=== PATIENT | female | born 1955 | race Caucasian/White ===

== ENCOUNTER 2025-05-11 06:05 | Day surgery (SDC) | payer OTHER, BC ==
[2025-05-08 12:06] VITALS: BMI 22.8
[2025-05-11] MEDS ORDERED: GLYCOPYRROLATE 0.2 MG/1 ML VIAL ONE (13:36)
[2025-05-11] MEDS ORDERED: SUCCINYLCHOLINE CHLORIDE 200 MG/10 ML SYRINGE ONE (13:36)
[2025-05-11] MEDS ORDERED: ONDANSETRON 4 MG/2 ML VIAL ONE (13:36)
[2025-05-11] MEDS ORDERED: DEXAMETHASONE SOD PHOSPHATE 4 MG/1 ML VIAL ONE (13:36)
[2025-05-11] MEDS ORDERED: ROCURONIUM BROMIDE 50 MG/5 ML SYRINGE ONE ×2 (13:36→14:31)
[2025-05-11] MEDS ORDERED: LIDOCAINE HCL/PF 2% SDV 5ML VIAL ONE (13:36)
[2025-05-11] MEDS ORDERED: HEPARIN NA (PORCINE) 5,000 UNITS/ML 1ML VIAL ONE (14:04)
[2025-05-11] MEDS ORDERED: PROPOFOL 20 ML ONE (14:31)
[2025-05-11] MEDS ORDERED: MIDAZOLAM HCL 2 MG/2 ML SINGLE DOSE VIAL ONE (14:31)
[2025-05-11] MEDS ORDERED: SUGAMMADEX SODIUM 200 MG/2 ML VIAL ONE (15:24)
[2025-05-11] MEDS ORDERED: PROTAMINE SULFATE 50 MG/5 ML VIAL ONE (15:45)
[2025-05-11] MEDS ORDERED: ONDANSETRON 4 MG/2 ML VIAL IVPUSH PRN (16:06)
[2025-05-11] MEDS ORDERED: LACTATED RINGERS SOLUTION 1,000 ML IV SCH (16:15)
[2025-05-11] MEDS ORDERED: CLOPIDOGREL BISULFATE 75 MG TABLET (FP) ONE (16:57)
[2025-05-11] MEDS: CLOPIDOGREL BISULFATE 75 MG TABLET (FP) PO ONE (17:00)
[2025-05-11 17:52] VITALS: PULSE 62
[2025-05-11 18:14] VITALS: RESP 18
[2025-05-11 18:47] VITALS: BP 140/66; TEMP 97.8
== END 2025-05-11 19:20 | disposition home or self-care (01) ==
LOC: JASU-SURG 06:05
PROVIDERS: ATTEND Surgery
PROC: 04793DZ Dilation of Right Renal Artery with Intraluminal Device, Percutaneous Approach (ICD-10-PCS; principal; 2025-05-11 11:30)
DX: I70.1 Atherosclerosis of renal artery (principal); I12.9 Hypertensive chronic kidney disease with stage 1 through stage 4 chronic kidney disease, or unspecified chronic kidney disease; N18.9 Chronic kidney disease, unspecified
CPT/HCPCS: 36245; 37236; C1875; 76000-TC-FY; 86850; 86900; 86901; 94760; C1760; C1769